=== PATIENT | female | born 1970 | race Two or more races ===

== ENCOUNTER 2018-09-28 10:30 | Inpatient (IN) | payer OTHER ==
[~2018-09-28] VITALS: Ht 162.6 cm; Wt 97.5 kg
[2018-10-04] MEDS ORDERED: AVALIDE 300-121 EACH PO (11:28)
[2018-10-04] MEDS ORDERED: FIORICET PO (11:29)
[2018-10-08] MEDS ORDERED: BUTALBIT-ACETA1 EACH PO (07:37)
[2018-10-12] MEDS ORDERED: GABAPENTIN600 MG PO (06:58)
[2018-10-12] MEDS ORDERED: IBUPROFEN800 MG PO (06:58)
== END 2018-10-12 08:50 | disposition home or self-care (01) | DRG 743 ==
LOC: O/R 10-08 06:00 → OB/GYN 10-08 06:00
PROVIDERS: ADMIT Obstetrics & Gynecology
PROC: 0UT10ZZ Resection of Left Ovary, Open Approach (ICD-10-PCS; 2018-10-08)
PROC: 0DNW0ZZ Release Peritoneum, Open Approach (ICD-10-PCS; 2018-10-08)
PROC: 0UT90ZZ Resection of Uterus, Open Approach (ICD-10-PCS; principal; 2018-10-08 10:15)
PROC: 0UT60ZZ Resection of Left Fallopian Tube, Open Approach (ICD-10-PCS; 2018-10-08 10:15)
DX: D25.1 Intramural leiomyoma of uterus (principal); D25.0 Submucous leiomyoma of uterus; D25.2 Subserosal leiomyoma of uterus; N72 Inflammatory disease of cervix uteri; N83.292 Other ovarian cyst, left side

== ENCOUNTER 2018-10-04 07:10 | Outpatient (CLI) | payer OTHER ==
[2018-10-04] MEDS ORDERED: AVALIDE 300-121 EACH PO (11:28)
[2018-10-04] MEDS ORDERED: FIORICET PO (11:29)
== END 2018-10-04 07:17 | disposition home or self-care (01) ==
LOC: EKG 07:10
DX: Z01.818 Encounter for other preprocedural examination (principal)